=== PATIENT | female | born 1935 | race Caucasian/White ===

== ENCOUNTER 2017-01-30 18:08 | Emergency (ER) | payer OTHER | END 2017-01-30 18:25 | disposition left against medical advice (07) | LOC: ER 18:08 | DX: R05 Cough (principal); Z53.21 Procedure and treatment not carried out due to patient leaving prior to being seen by health care provider ==

== ENCOUNTER → 2018-04-24 | Outpatient (CLI) | payer OTHER | END | disposition home or self-care (01) | LOC: KCIC 12:38 | DX: E83.59 Other disorders of calcium metabolism (principal); Z91.81 History of falling | CPT/HCPCS: 73562 ==

== ENCOUNTER 2019-09-10 12:59 | Emergency (ER) | payer MEDICARE, OTHER ==
[~2019-09-10] VITALS: Ht 162.6 cm; Wt 52.2 kg
[2019-09-10 13:16] VITALS: BP 174/73
--- NOTE | 2019-09-10 13:40 | PHYS DOC ---
Past Medical History Past Medical History: [place] Past Surgical History: Coronary Bypass Surgery Alcohol Use: Rarely Drug Use: None Adult General Chief Complaint Chief Complaint: HAND PROBLEM HPI HPI Patient is a 83 year old female who presents with right hand pain. The patient fell on Tuesday and has been having lateral right hand pain ever since that time. Patient had a mechanical fall at the grocery store. Ports pain 5 out of 10 in severity and sharp. Has been taking Advil at home. Review of Systems Review of Systems Constitutional: Denies fever or chills [] Eyes: Denies change in visual acuity, redness, or eye pain [] HENT: Denies nasal congestion or sore throat [] Respiratory: Denies cough or shortness of breath [] Cardiovascular: No additional information not addressed in HPI [] GI: Denies abdominal pain, nausea, vomiting, bloody stools or diarrhea [] : Denies dysuria or hematuria [] Musculoskeletal: Reports R hand pain. Integument: Denies rash or skin lesions [] Neurologic: Denies headache, focal weakness or sensory changes [] Endocrine: Denies polyuria or polydipsia [] Complete systems were reviewed and found to be within normal limits, except as documented in this note. Allergies Allergies Allergies Coded Allergies Type Severity Reaction Last Updated Verified No Known Drug Allergies 09/10/19 No Physical Exam Physical Exam Constitutional: Well developed, well nourished, no acute distress, non-toxic appearance. [] HENT: Normocephalic, atraumatic, bilateral external ears normal, oropharynx moist, no oral exudates, nose normal. [] Eyes: PERRLA, EOMI, conjunctiva normal, no discharge. [] Neck: Normal range of motion, no tenderness, supple, no stridor. [] Cardiovascular:Heart rate regular rhythm, no murmur [] Lungs & Thorax: Bilateral breath sounds clear to auscultation [] Abdomen: Bowel sounds normal, soft, no tenderness, no masses, no pulsatile masses. [] Skin: Warm, dry, no erythema, no rash. [] Back: No tenderness, no CVA tenderness. [] Extremities: Tenderness to Lateral R hand near 5th metacarpal, has mild br uising, no cyanosis, no clubbing, ROM intact, no edema. [] Neurologic: Alert and oriented X 3, normal motor function, normal sensory function, no focal deficits noted. [] Psychologic: Affect normal, judgement normal, mood normal. [] Current Patient Data Vital Signs Vital Signs Date Time Temp Pulse Resp B/P (MAP) Pulse Ox O2 Delivery O2 Flow Rate FiO2 09/10/19 13:16 97.8 71 16 174/73 (106) 96 Room Air 97.8 EKG EKG [] Radiology/Procedures Radiology/Procedures [][facility] [address] [place] [address] IMAGING REPORT Signed PATIENT: KARON METCALFACCOUNT: [id number] : 1935 LOCATION: ER AGE: 83 SEX: F EXAM STATUS: REG ER ORD. PHYSICIAN: RENATO SPEAR APRN REASON: fall on 09/07/19, pain/bruising to rt 5th metacarpal PROCEDURE: HAND RIGHT 3V EXAM: PA, oblique and lateral views of the right hand DATE: 09/10/2019 1:30 PM INDICATION: Fall, pain COMPARISON: No Prior FINDINGS: There is a nondisplaced likely fracture at the base of the fifth metacarpal without fifth CMC subluxation. Marked osteopenia limits evaluation for additional fractures. Multifocal degenerative/proliferative changes are seen. IMPRESSION: Nondisplaced likely intra-articular fracture base of fifth metacarpal. No associated CMC subluxation. Marked osteopenia limits evaluation for additional fractures. Electronically signed by: Francisco Coulter MD (09/10/2019 2:20 PM) [id number] DICTATED and SIGNED BY: FRANCISCO COULTER MD DATE: 09/10/19 1420 Course & Med Decision Making Course & Med Decision Making Pertinent Labs and Imaging studies reviewed. (See chart for details) Will get X-ray. Offered pain medication and patient declined. Has 5th metacarpal base fracture, will place in ulnar gutter splint and discharge home to follow up with orthopedics in a week. Dragon Disclaimer Dragon Disclaimer This electronic medical record was generated, in whole or in part, using a voice recognition dictation system. Departure Departure Impression: Primary Impression: Fracture of base of fifth metacarpal bone Disposition: 01 HOME, SELF-CARE Condition: STABLE Referrals: NO PCP (PCP) ABERSANKET,TOMMY S II MD Patient Instructions: Hand Fracture, Fifth Metacarpal Additional Instructions: Thank you for visiting [facility]. We appreciate you trusting us with your care. If any additional problems come up don't hesitate to return to visit us. Please follow up with your primary care provider so they can plan additional care if needed and know about the problem that you had. If symptoms worsen come back to the Emergency Department. Any concerning symptoms that start such as chest pain, shortness of air, weakness or numbness on one side of the body, running high fevers or any other concerning symptoms return to the ER. Please follow up with orthopedics in 1 week. Problem Qualifiers Primary Impression: Fracture of base of fifth metacarpal bone Encounter type: initial encounter Fracture type: closed Fracture alignment: nondisplaced Laterality: right Qualified Codes: S62.346A - Nondisplaced fracture of base of fifth metacarpal bone, right hand, initial encounter for closed fracture RENATO SPEAR APRN Sep 10, 2019 13:40
--- NOTE | 2019-09-10 14:22 | RAD ---
EXAM: PA, oblique and lateral views of the right hand DATE: 09/10/2019 1:30 PM INDICATION: Fall, pain COMPARISON: No Prior FINDINGS: There is a nondisplaced likely fracture at the base of the fifth metacarpal without fifth CMC subluxation. Marked osteopenia limits evaluation for additional fractures. Multifocal degenerative/proliferative changes are seen. IMPRESSION: Nondisplaced likely intra-articular fracture base of fifth metacarpal. No associated CMC subluxation. Marked osteopenia limits evaluation for additional fractures. Electronically signed by: Francisco Coulter MD (09/10/2019 2:20 PM) [id number]
== END 2019-09-10 14:54 | disposition home or self-care (01) ==
LOC: ER 12:59
DX: S62.346A Nondisplaced fracture of base of fifth metacarpal bone, right hand, initial encounter for closed fracture (principal); Z95.1 Presence of aortocoronary bypass graft; I25.2 Old myocardial infarction; W18.39XA Other fall on same level, initial encounter; Y93.89 Activity, other specified; Y92.512 Supermarket, store or market as the place of occurrence of the external cause; Y99.8 Other external cause status
CPT/HCPCS: 29125; 73130; 99284-25

== ENCOUNTER → 2020-03-03 | Outpatient (CLI) | payer OTHER ==
[2020-01-11 15:14] VITALS: BP 116/45
[~2020-03-03] MED LIST: ACET325T9 PO; ASPI325T11 PO; ATOR10TA60 PO; CEPH-263 PO; LACT1CAP19 PO; LISI1TAB23 PO
--- NOTE | 2020-03-03 14:42 | CARD ---
MR#: [id number] Date of Study: 03/03/2020 Ordering Physician: RUBY CARDENAS, Referring Physician: RUBY CARDENAS, Tech: APPROVED REPORT EXAM Successful implantation of Medtronic Reveal Linq loop recorder INDICATIONS Stroke of uncertain etiology, rule out atrial fibrillation IMPLANTED DEVICES An informed consent was obtained from patient. Patient was brought to the procedure suite and her le ft chest and shoulder were prepped and draped in the usual fashion. 20 mL of 2% lidocaine was infilt rated into the skin and subcutaneous tissues for local anesthesia. An incision was made in the left fourth intercostal space 1 inch from midsternal line. With the help of introducer and deployer provi ded with the kit a Medtronic Reveal Linq loop recorder serial number [id number] was placed in the sub cutaneous tissue. The incision was closed with steristrips. Hemostasis was secured. Patient tolera roger the procedure well. There were no immediate complications. At the end of procedure, the device showed sensing amplitude of 1.16 mV. CONCLUSION Successful implantation of Medtronic Reveal Linq loop recorder for stroke of uncertain etiology to ru le out any significant arrhythmias. Signed by : Ruby Cardenas, Electronically Approved : 03/03/2020 14:41:31
== END | disposition home or self-care (01) ==
LOC: LINQ 11:42
PROVIDERS: ATTEND Internal Medicine Cardiovascular Disease
DX: R55 Syncope and collapse (principal); I25.10 Atherosclerotic heart disease of native coronary artery without angina pectoris; E78.00 Pure hypercholesterolemia, unspecified; J44.9 Chronic obstructive pulmonary disease, unspecified; I25.5 Ischemic cardiomyopathy; Z79.82 Long term (current) use of aspirin; Z86.73 Personal history of transient ischemic attack (TIA), and cerebral infarction without residual deficits; Z95.1 Presence of aortocoronary bypass graft; Z79.899 Other long term (current) drug therapy; Z72.0 Tobacco use
CPT/HCPCS: 33285; C1764